=== PATIENT | female | born 1985 | race Two or more races ===

== ENCOUNTER 2019-06-18 01:22 | Emergency (ER) | payer MEDICAID ==
[~2019-06-18] VITALS: Ht 154.9 cm; Wt 62.1 kg
[~2019-06-18 01:22] MED LIST: BENADRYL25 M2 PO; DILANTIN100 MG PO; HYDROMORPHONE HC4 M1 PO; METHIMAZOLE10 MG PO
[2019-06-18] MEDS ORDERED: LORazepam Inj 2mg/ml 1ml IV ONE ×2 (01:30→01:45)
[2019-06-18] MEDS ORDERED: Phenytoin 500 MG in NS 110 ML IVPB STA (01:35)
--- NOTE | 2019-06-18 01:44 | Emergency Room Report ---
History of Present Illness General Chief Complaint: Seizure Source: Patient Present Illness HPI The patient had a generalized tonic-clonic seizure 1 hour before presentation here. In the past she has been treated with Dilantin and multiple other antiseizure medications. She alleges she was taken off of all seizure medication by her neurologist. Apparently she has seizures related to her headache. She does have a headache at this time that severe. She takes Dilaudid at home. Pain is constant and more in the right temporal area but throughout her head. She feels nauseated but is not vomiting. There is no trauma during the seizure. She denies fevers or chills. There was no incontinence. She alleges she had a glioblastoma that was surgically removed in 2005. She was also treated for lymphoma allegedly with radiation and chemotherapy.. 3 months ago she was told she has a recurrence of the lymphoma. The mass in her neck on the left-hand side. She is being treated at [facility]. No sore throat, chest pain, palpitations, diarrhea, dysuria, abdominal pain, shortness of breath, joint pain, rashes. In 2014 this was the history given with HOLDER: Patient presents with complaint of 2 days of headache, and some blurry vision on the right side. She states she has a history of temporal arteritis which was diagnosed may be a year ago and outside hospital and the family. She states that she never followed up with a drywall stripper and that her primary advised her to go emerged department for further evaluation because of the headache. She has taken steroids in the past per her description. She complains of some nausea as well as. Without vomiting in the ER. Denies chest pain or shortness of breath or possible . She was seen in 2012 with this history: HISTORY OF PRESENT ILLNESS: This is a 27-year-old female, who has a history of lymphoma. She is status post a craniotomy. She has chronic pain from that. She usually takes Dilaudid and Benadryl. However, she has been out of her Dilaudid for the last 2 days. She spoke ot her pain management doctor, [___ _] , who referred her to us. Currently she is having no other symptoms, no nausea, no vomiting, no dizziness, and no syncope. This is a typical flare of her chronic pain which she grades a 9/10 located at the site of her craniotomy. No trauma. There are no other modifying factors, no associated signs or symptoms and no other complaints. 5 days later she was seen with these discharge diagnoses: 1. Acute exacerbation of chronic head pain. 2. Opiate seeking behavior. Allergies: Coded Allergies: TOPIRAMATE (Verified Allergy, Mild, Anaphylaxis, 03/11/13) METOCLOPRAMIDE HCL (Verified Allergy, Anaphylaxis, 03/11/13) Patient History Past Medical History: see triage record, old chart reviewed Past Surgical History: other - Alleged craniotomy Social History: Denies: smoking Social History Narrative brought by friend - has son at home Reviewed Nursing Documentation: PMH: Agreed; PSxH: Agreed Nursing Documentation-PMH Hx Neurological Problems: Yes - 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 Hx Seizures: Yes Review of Systems All Other Systems: negative except mentioned in HPI Physical Exam Vital Signs Date Time Temp Pulse Resp B/P (MAP) Pulse Ox O2 Delivery O2 Flow Rate FiO2 06/18/19 01:30 98.2 96 16 136/78 (97) 98 Room Air Sp02 EP Interpretation: reviewed, normal General Appearance: well appearing, no apparent distress, GCS 15 Head: normocephalic, atraumatic, other - Tenderness temporal area right Eyes: bilateral eye normal inspection, bilateral eye PERRL, bilateral eye EOMI ENT: moist mucus membranes - No oral trauma Neck: full range of motion, supple, no meningismus, no bony tend, other - hardness L lateral neck ? lymph tissue Respiratory: lungs clear, normal breath sounds Cardiovascular #1: regular rate, rhythm Cardiovascular #2: 2+ radial (R) Gastrointestinal: normal inspection Musculoskeletal: back normal, gait/station normal, normal range of motion Neurologic: alert, oriented x3, programs assistant III-XII nml as tested, motor strength/tone normal, DTRs symmetric, sensory intact, cerebellar normal, normal gait, speech normal Psychiatric: other - tearful in discussing dx Skin: no rash Medical Decision Making Diagnostic Impression: Primary Impression: Alleged seizure Additional Impressions: Headache Qualified Codes: R51 - Headache Inconsistent medical history ER Course Patient presents with a history of lymphoma, alleged seizure and headache. Differential includes uncontrolled seizures, cephalgia, drug-seeking behavior, coma, electrolyte imbalance amongst others. Based on the fact that the patient has a nonfocal neurologic exam at this time and a history of uncontrolled seizures CT of the head is not indicated. The patient will be evaluated with EKG, chest x-ray and labs. Patient will be treated with IV hydration and Ativan. Dilantin level is ordered as well as Dilantin IV. No IV sites. Meds re-ordered IM and PO. Labs unremarkable except for low Dilantin and + opiates. Pupils small but states "not working". Pain 10/09. Toradol ordered. Contact [facility]. Discussed with Dr. Ruby. No records for this patient for this birthday. Consideration of further treatment with Compazine. Discussed with patient. She states she has records at home. She feels better and requests to go home. She states to me that the pain is improved. She is in no distress at this time. Patient stable for outpatient observation and treatment. Laboratory Tests Test 06/18/19 01:30 06/18/19 02:20 Urine Color Pale yellow Urine Appearance Slightly cloudy Urine pH 5 (4.5-8.0) Urine Specific [place] 1.025 (1.005-1.035) Urine Protein 1+ (NEGATIVE) H Urine Glucose (UA) Negative (NEGATIVE) Urine Ketones Negative (NEGATIVE) Urine Blood Negative (NEGATIVE) Urine Nitrite Negative (NEGATIVE) Urine Bilirubin Negative (NEGATIVE) Urine Urobilinogen Normal MG/DL (0.0-1.0) Urine Leukocyte Esterase Negative (NEGATIVE) Urine RBC 0-2 /HPF (0 - 2) Urine WBC 0-2 /HPF (0 - 2) Urine Squamous Epithelial Cells Many /LPF (NONE/OCC) H Urine Bacteria Few /HPF (NONE) Urine HCG, Qualitative Negative (NEGATIVE) Urine Opiates Screen Positive (NEGATIVE) H Urine Barbiturates Screen Negative (NEGATIVE) Phencyclidine (PCP) Screen Negative (NEGATIVE) Urine Amphetamines Screen Negative (NEGATIVE) Urine Benzodiazepines Screen Negative (NEGATIVE) Urine Cocaine Screen Negative (NEGATIVE) Urine Marijuana (THC) Screen Negative (NEGATIVE) White Blood Count 10.2 K/UL (4.8-10.8) Red Blood Count 4.42 M/UL (4.20-5.40) Hemoglobin 12.0 G/DL (12.0-16.0) Hematocrit 36.8 % (37.0-47.0) L Mean Corpuscular Volume 83 FL (80-99) Mean Corpuscular Hemoglobin 27.1 PG (27.0-31.0) Mean Corpuscular Hemoglobin Concent 32.5 G/DL (32.0-36.0) Red Cell Distribution Width 13.4 % (11.6-14.8) Platelet Count 372 K/UL (150-450) Mean Platelet Volume 6.2 FL (6.5-10.1) L Neutrophils (%) (Auto) 58.5 % (45.0-75.0) Lymphocytes (%) (Auto) 31.9 % (20.0-45.0) Monocytes (%) (Auto) 6.6 % (1.0-10.0) Eosinophils (%) (Auto) 2.2 % (0.0-3.0) Basophils (%) (Auto) 0.9 % (0.0-2.0) Sodium Level 135 MMOL/L (136-145) L Potassium Level 3.6 MMOL/L (3.5-5.1) Chloride Level 102 MMOL/L (98-107) Carbon Dioxide Level 27 MMOL/L (21-32) Anion Gap 6 mmol/L (5-15) Blood Urea Nitrogen 13 mg/dL (7-18) Creatinine 0.8 MG/DL (0.55-1.30) Estimate Glomerular Filtration Rate > 60 mL/min (>60) Glucose Level 91 MG/DL (74-106) Calcium Level 8.5 MG/DL (8.5-10.1) Total Bilirubin 0.1 MG/DL (0.2-1.0) L Aspartate Amino Transferase (AST) 16 U/L (15-37) Alanine Aminotransferase (ALT) 18 U/L (12-78) Alkaline Phosphatase 99 U/L (46-116) Total Creatine Kinase 296 U/L (26-308) Total Protein 7.9 G/DL (6.4-8.2) Albumin 3.6 G/DL (3.4-5.0) Globulin 4.3 g/dL Albumin/Globulin Ratio 0.8 (1.0-2.7) L Acetaminophen Level < 2 MCG/ML (10-30) L Phenytoin (Dilantin) Level 1.1 ug/mL (10-20) L Serum Alcohol < 3 mg/dL EKG Diagnostic Results Rate: normal Rhythm: NSR ST Segments: no acute changes Rhythm Strip Diag. Results EP Interpretation: yes Rhythm: NSR, no PVC's, no ectopy Last Vital Signs Date Time Temp Pulse Resp B/P (MAP) Pulse Ox O2 Delivery O2 Flow Rate FiO2 06/18/19 04:29 98.2 16 136/78 98 Room Air 06/18/19 01:45 96 Status: improved Disposition: HOME, SELF-CARE Condition: Improved Gonzales Batista MD Jun 18, 2019 01:44
[2019-06-18 01:45] VITALS: BP 136/78
[2019-06-18] MEDS ORDERED: Hydromorphone 0.5mg/0.5ml inj IVP ONE (01:45)
--- NOTE | 2019-06-18 01:45 | NUR ---
ED Nurse Note: Patient walked in to ER c/o seizure 1 hr ago. Stated that was witnessed by family members, seizure duration was 60 sec. Patient presented AAO x4, VSS at this time, skin warm to touch.
[2019-06-18 02:02] LABS: APPEARANCE,URINE SLIGHTLY CLOUDY; BILIRUBIN, URINE NEGATIVE (NEGATIVE); COLOR,URINE PALE YELLOW; GLUCOSE, URINE (UA) NEGATIVE (NEGATIVE); KETONES,URINE NEGATIVE (NEGATIVE); LEUKOCYTE ESTERASE ,URINE NEGATIVE (NEGATIVE); NITRITE,URINE NEGATIVE (NEGATIVE); PH,URINE 5 (4.5-8.0); PROTEIN,URINE 1+ (NEGATIVE); UROBILINOGEN,URINE NORMAL MG/DL (0.0-1.0)
[2019-06-18] MEDS ORDERED: Phenytoin 100mg cap ORAL ONE (02:15)
[2019-06-18] MEDS ORDERED: HYDROmorphone 1mg/ml Carpuject IM ONE (02:15)
[2019-06-18 02:30] LABS: BASOPHILS % (AUTO) 0.9 % (0.0-2.0); EOSINOPHILS % (AUTO) 2.2 % (0.0-3.0); HEMATOCRIT 36.8 % (37.0-47.0); LYMPHOCYTES % (AUTO) 31.9 % (20.0-45.0); MEAN CORPUSCULAR VOLUME 83 FL (80-99); MONOCYTES % (AUTO) 6.6 % (1.0-10.0); NEUTROPHILS % (AUTO) 58.5 % (45.0-75.0); PLATELET COUNT 372 K/UL (150-450); RED BLOOD COUNT 4.42 M/UL (4.20-5.40); RED CELL DISTRIBUTION WIDTH 13.4 % (11.6-14.8); WHITE BLOOD COUNT 10.2 K/UL (4.8-10.8)
[2019-06-18 02:38] LABS: ANION GAP 6 mmol/L (5-15); BLOOD UREA NITROGEN 13 mg/dL (7-18); CALCIUM 8.5 MG/DL (8.5-10.1); CARBON DIOXIDE 27 MMOL/L (21-32); CHLORIDE 102 MMOL/L (98-107); CREATININE 0.8 MG/DL (0.55-1.30); POTASSIUM 3.6 MMOL/L (3.5-5.1); SODIUM 135 MMOL/L (136-145)
[2019-06-18 02:43] LABS: ALANINE AMINOTRANSFERASE 18 U/L (12-78); ALBUMIN 3.6 G/DL (3.4-5.0); ALBUMIN/GLOBULIN RATIO 0.8 (1.0-2.7); ALKALINE PHOSPHATASE 99 U/L (46-116); ASPARTATE AMINO TRANSFERASE 16 U/L (15-37); BILIRUBIN,TOTAL 0.1 MG/DL (0.2-1.0); CREATINE KINASE 296 U/L (26-308)
[2019-06-18] MEDS ORDERED: Ketorolac 60mg Inj IM ONE (03:45)
[2019-06-18 04:29] VITALS: BP 136/78
--- NOTE | 2019-06-18 04:30 | NUR ---
ED Nurse Note: Pt cleared by health care Provider for discharge. DC instructions/prescription was given and explained to pt and verbalized understanding of teachings. All medical deviecs such as ID band removed. Pt is AAO x4, ambulatory and left with all personal belongings.
--- NOTE | 2019-06-18 13:13 | Diagnostic Imaging Report ---
Indication: Chest pain Technique: One view of the chest Comparison: none Findings: Lungs and pleural spaces are clear. Heart size is normal. Impression: No acute process
--- NOTE | 2019-06-18 19:52 | Cardiology Report ---
APPROVED REPORT EKG Measurement Heart [id number] Normal sinus rhythm Normal ECG
== END 2019-06-18 04:45 | disposition home or self-care (01) ==
LOC: EMR 01:36
DX: R51 Headache (principal); Z88.8 Allergy status to other drugs, medicaments and biological substances
CPT/HCPCS: 36415; 71045; 80053; 80185; 80307; 80329; 81003; 81025; 82550; 85025; 93005; 96372; 99284; J1170

== ENCOUNTER 2019-07-02 09:12 | Emergency (ER) | payer MEDICAID ==
[~2019-07-02] VITALS: Ht 152.4 cm; Wt 62.1 kg
[2019-07-02 09:39] VITALS: BP 120/89
[2019-07-02] MEDS ORDERED: Acetaminophen 500mg (ES) tab ORAL ONE (10:00)
--- NOTE | 2019-07-02 10:00 | NUR ---
ED Nurse Note: pt states she had a sz an hour ago now at home now c/o headache elissad rhianna done urine sent to lab. sz precautions implemented.
[2019-07-02 10:08] LABS: APPEARANCE,URINE CLEAR; BILIRUBIN, URINE NEGATIVE (NEGATIVE); COLOR,URINE PALE YELLOW; GLUCOSE, URINE (UA) NEGATIVE (NEGATIVE); KETONES,URINE NEGATIVE (NEGATIVE); LEUKOCYTE ESTERASE ,URINE NEGATIVE (NEGATIVE); NITRITE,URINE NEGATIVE (NEGATIVE); PH,URINE 6 (4.5-8.0); PROTEIN,URINE 1+ (NEGATIVE); UROBILINOGEN,URINE NORMAL MG/DL (0.0-1.0)
--- NOTE | 2019-07-02 11:01 | Emergency Room Report ---
History of Present Illness General Chief Complaint: Seizure Present Illness HPI Patient is a 34-year-old female who presented after increased headache. Patient reports having prior history of multiple medical problems in the past. She states she had prior history of brain tumor as well as prior Craniotomy. She reports having prior history of lymphoma. She states she is followed by Dr. Steven Camargo at the [facility]. She reports having worsening headache. She states she usually takes pain medications including Dilaudid as well as Sloan.Patient reports having prior history of craniotomy and prior traction headaches as result. She reportedly had prior history of glioblastoma and is currently scheduled for a PET scan with her primary care physician. She denies any fever. She reports having one episode of vomiting. She denies any visual changes. She reports having multiple medication allergies. Allergies: Coded Allergies: METHYLPREDNISOLONE (Verified Allergy, Severe, Anaphylaxis, 07/02/19) PROCHLORPERAZINE (Verified Allergy, Severe, Anaphylaxis, 07/02/19) PROMETHAZINE (Verified Allergy, Severe, Anaphylaxis, 07/02/19) TOPIRAMATE (Verified Allergy, Mild, Anaphylaxis, 03/11/13) METOCLOPRAMIDE HCL (Verified Allergy, Unknown, Anaphylaxis, 07/02/19) Patient History Past Medical History: see triage record Last Menstrual Period: now Reviewed Nursing Documentation: PMH: Agreed; PSxH: Agreed Nursing Documentation-PMH Hx Cancer: Yes Hx Neurological Problems: Yes - TUMOR OF BRAIN TO LYHOMA Hx Seizures: Yes Review of Systems All Other Systems: negative except mentioned in HPI Physical Exam Vital Signs Date Time Temp Pulse Resp B/P (MAP) Pulse Ox O2 Delivery O2 Flow Rate FiO2 07/02/19 09:20 98.1 84 18 120/89 (99) 98 Room Air Sp02 EP Interpretation: reviewed, normal General Appearance: normal inspection, well appearing, no apparent distress, alert, GCS 15 Head: atraumatic, other - prior craniotomy scar ENT: normal ENT inspection, hearing grossly normal, normal voice, other - no tongue abrasion Neck: normal inspection, full range of motion, supple, no bony tend Respiratory: normal inspection, lungs clear, normal breath sounds, no respiratory distress, no retraction, no wheezing Cardiovascular #1: regular rate, rhythm, no edema Gastrointestinal: normal inspection, normal bowel sounds, non tender, soft, no guarding, no hernia Genitourinary: no CVA tenderness Musculoskeletal: normal inspection, back normal, normal range of motion Neurologic: normal inspection, alert, oriented x3, responsive, fern picker III-XII nml as tested, motor strength/tone normal, speech normal Psychiatric: normal inspection, judgement/insight normal, mood/affect normal Medical Decision Making Diagnostic Impression: Primary Impression: Headache ER Course Differential diagnoses included but was not limited to skull fracture, subarachnoid hemorrhage, meningitis, aneurysm, mass lesion, intracranial hemorrhage. Patient's cures report was reviewed and was noted to have multiple prescriptions for medications including morphine sulfate 30 mg #60 approximately 2 weeks prior to arrival. Patient had multiple different prescriptions from primary care provider primarily Dr. Abelardo Cary who is the patient's primary care physician..Patient has had intermittent similar headaches in the past. Pertinent past visits patient's medical records could not be obtained from [facility] however patient does not see oncologist at [facility] she goes to another facility. I was unable to contact this facility however patient's oncologist's name Steven Camargo and she has received narcotic pain medications in the past. Patient does not appear to be in any acute distress. She is offered nonnarcotic pain medications. Patient was not offered narcotics due to likelihood of rebound headache. Patient's laboratory testing was unremarkable. She appears to be stable for discharge. Patient advised to follow-up with her primary care physician for further evaluation and imaging. Patient appears to be stable for discharge and does not show any evidence of focal neurologic deficit or weakness. Last Vital Signs Date Time Temp Pulse Resp B/P (MAP) Pulse Ox O2 Delivery O2 Flow Rate FiO2 07/02/19 09:41 84 18 Room Air 07/02/19 09:39 98.1 120/89 98 Status: improved Disposition: HOME, SELF-CARE Condition: Stable Patient Instructions: General Headache Without Cause Braulio Dash MD Jul 02, 2019 11:01
[2019-07-02] MEDS ORDERED: DiphenhydrAMINE 50mg/ml Inj IVP ONE (11:15)
[2019-07-02] MEDS ORDERED: Ketorolac 30mg Inj IV ONE (11:15)
[2019-07-02 11:43] LABS: BASOPHILS % (AUTO) 0.9 % (0.0-2.0); HEMATOCRIT 41.1 % (37.0-47.0); LYMPHOCYTES % (AUTO) 33.8 % (20.0-45.0); MEAN CORPUSCULAR VOLUME 83 FL (80-99); MONOCYTES % (AUTO) 5.3 % (1.0-10.0); PLATELET COUNT 393 K/UL (150-450); RED BLOOD COUNT 4.96 M/UL (4.20-5.40); RED CELL DISTRIBUTION WIDTH 14.5 % (11.6-14.8); WHITE BLOOD COUNT 5.4 K/UL (4.8-10.8)
[2019-07-02 11:59] LABS: ANION GAP 13 mmol/L (5-15); BLOOD UREA NITROGEN 6 mg/dL (7-18); CALCIUM 9.1 MG/DL (8.5-10.1); CARBON DIOXIDE 23 MMOL/L (21-32); CHLORIDE 106 MMOL/L (98-107); CREATININE 0.6 MG/DL (0.55-1.30); POTASSIUM 4.3 MMOL/L (3.5-5.1); SODIUM 142 MMOL/L (136-145)
[2019-07-02] MEDS ORDERED: Morphine Sulfate 4mg/ml Inj (IV USE ONLY) IVP ONE (12:00)
[2019-07-02 12:04] LABS: ALANINE AMINOTRANSFERASE 21 U/L (12-78); ALBUMIN 4.1 G/DL (3.4-5.0); ALBUMIN/GLOBULIN RATIO 0.9 (1.0-2.7); ALKALINE PHOSPHATASE 95 U/L (46-116); ASPARTATE AMINO TRANSFERASE 27 U/L (15-37)
[2019-07-02 13:19] VITALS: BP 127/80
--- NOTE | 2019-07-02 13:19 | NUR ---
ER DISCHARGE NOTE: Patient is cleared to be discharged per ERMD, pt is aox4, on room air, with stable vital signs. pt was given dc and prescription instructions, pt was able to verbalize understanding, pt id band and iv site removed without complications. pt is able to ambulate with steady gait. pt took all belongings.
[2019-07-02 14:35] LABS: BILIRUBIN,TOTAL 0.3 MG/DL (0.2-1.0)
== END 2019-07-02 13:19 | disposition home or self-care (01) ==
LOC: EMR 09:48
DX: R51 Headache (principal); Z85.72 Personal history of non-Hodgkin lymphomas; Z88.8 Allergy status to other drugs, medicaments and biological substances; Z85.841 Personal history of malignant neoplasm of brain
CPT/HCPCS: 36415; 80053; 81003; 81025; 85025; 96374; 96375; 99284; J1200; J1885; J2270; J7040

== ENCOUNTER 2019-07-18 19:41 | Emergency (ER) | payer MEDICAID ==
[~2019-07-18] VITALS: Ht 152.4 cm; Wt 61.2 kg
[2019-07-18 19:50] VITALS: BP 130/90
--- NOTE | 2019-07-18 19:50 | NUR ---
ED Nurse Note: Pt AAOx4, vvs, with no acute distress. pt walked in c/o headache, seizure, and n/v since 1800. Witnessed seizure for 90 secs by dad. Pt stated she has heachace and n/v before seizure. Pt not on meds d/t neurologist recommendation, unk last sz
--- NOTE | 2019-07-18 20:23 | Emergency Room Report ---
History of Present Illness General Chief Complaint: Seizure Source: Patient Present Illness HPI Patient is a 34-year-old female who presents after reported seizure. She reports having prior history of headache induced seizures. She states that she had prior history of glioblastoma and has had previous brain surgery. She reports having prior history of lymphoma. Allergies: Coded Allergies: METHYLPREDNISOLONE (Verified Allergy, Severe, Anaphylaxis, 07/02/19) PROCHLORPERAZINE (Verified Allergy, Severe, Anaphylaxis, 07/02/19) PROMETHAZINE (Verified Allergy, Severe, Anaphylaxis, 07/02/19) TOPIRAMATE (Verified Allergy, Mild, Anaphylaxis, 03/11/13) METOCLOPRAMIDE HCL (Verified Allergy, Unknown, Anaphylaxis, 07/02/19) Patient History Past Medical History: see triage record Last Menstrual Period: 07/2019 Now: No : 4 Para: 4 Reviewed Nursing Documentation: PMH: Agreed; PSxH: Agreed Nursing Documentation-PMH Hx Cancer: Yes Hx Neurological Problems: Yes - 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 , hedgkins lymphoma, gleoblastoma, Hx Seizures: Yes Review of Systems All Other Systems: negative except mentioned in HPI Physical Exam Vital Signs Date Time Temp Pulse Resp B/P (MAP) Pulse Ox O2 Delivery O2 Flow Rate FiO2 07/18/19 19:43 98.4 89 16 125/92 (103) 97 Sp02 EP Interpretation: reviewed, normal General Appearance: normal inspection, well appearing, no apparent distress, alert, GCS 15 Head: atraumatic ENT: normal ENT inspection, hearing grossly normal, normal voice Neck: normal inspection, full range of motion, supple, no bony tend Respiratory: normal inspection, lungs clear, normal breath sounds, no respiratory distress, no retraction, no wheezing Cardiovascular #1: regular rate, rhythm, no edema Gastrointestinal: normal inspection, normal bowel sounds, non tender, soft, no guarding, no hernia Genitourinary: no CVA tenderness Musculoskeletal: normal inspection, back normal, normal range of motion Neurologic: normal inspection, alert, oriented x3, responsive, poultry raiser III-XII nml as tested, speech normal Psychiatric: normal inspection, judgement/insight normal, mood/affect normal Medical Decision Making Diagnostic Impression: Primary Impression: Chronic pain Additional Impression: Headache ER Course Patient presented for headache. Differential diagnosis include was not limited to migraine headache, brain tumor, seizure, opiate withdrawal among others. Patient is noted to have some prior history of reported intracranial malignancy and has had previous CT imaging which showed some postsurgical changes. Patient is regularly being prescribed narcotic pain medication by her primary care physician. As she appears to be stable for outpatient evaluation and treatment with her neurologist. She is currently awake and alert with normal mental status. Patient was given pain medications emergency department. patient shows no evidence of acidosis. The patient is advised to follow up with primary care doctor in 1-2 days. Patient is advised to return if any worsening condition or if any changes in status that are concerning. This report is dictated with [employer] supervisor open hear[employer] stock[employer] software which may occasionally lead to discrepancies related to use of this software. Labs Test 07/18/19 20:40 07/18/19 20:45 White Blood Count 7.8 K/UL (4.8-10.8) Red Blood Count 4.21 M/UL (4.20-5.40) Hemoglobin 11.3 G/DL (12.0-16.0) Hematocrit 34.8 % (37.0-47.0) Mean Corpuscular Volume 83 FL (80-99) Mean Corpuscular Hemoglobin 26.8 PG (27.0-31.0) Mean Corpuscular Hemoglobin Concent 32.4 G/DL (32.0-36.0) Red Cell Distribution Width 13.9 % (11.6-14.8) Platelet Count 277 K/UL (150-450) Mean Platelet Volume 7.2 FL (6.5-10.1) Neutrophils (%) (Auto) 60.1 % (45.0-75.0) Lymphocytes (%) (Auto) 28.7 % (20.0-45.0) Monocytes (%) (Auto) 7.0 % (1.0-10.0) Eosinophils (%) (Auto) 2.9 % (0.0-3.0) Basophils (%) (Auto) 1.3 % (0.0-2.0) Sodium Level 140 MMOL/L (136-145) Potassium Level 3.9 MMOL/L (3.5-5.1) Chloride Level 107 MMOL/L (98-107) Carbon Dioxide Level 24 MMOL/L (21-32) Anion Gap 9 mmol/L (5-15) Blood Urea Nitrogen 10 mg/dL (7-18) Creatinine 0.7 MG/DL (0.55-1.30) Estimat Glomerular Filtration Rate > 60 mL/min (>60) Glucose Level 97 MG/DL (74-106) Calcium Level 8.8 MG/DL (8.5-10.1) Total Bilirubin 0.1 MG/DL (0.2-1.0) Aspartate Amino Transf (AST/SGOT) 20 U/L (15-37) Alanine Aminotransferase (ALT/SGPT) 17 U/L (12-78) Alkaline Phosphatase 78 U/L (46-116) Total Protein 7.5 G/DL (6.4-8.2) Albumin 3.4 G/DL (3.4-5.0) Globulin 4.1 g/dL Albumin/Globulin Ratio 0.8 (1.0-2.7) Urine Color Pale yellow Urine Appearance Clear Urine pH 7 (4.5-8.0) Urine Specific [place] 1.005 (1.005-1.035) Urine Protein Negative (NEGATIVE) Urine Glucose (UA) Negative (NEGATIVE) Urine Ketones Negative (NEGATIVE) Urine Blood Negative (NEGATIVE) Urine Nitrite Negative (NEGATIVE) Urine Bilirubin Negative (NEGATIVE) Urine Urobilinogen Normal MG/DL (0.0-1.0) Urine Leukocyte Esterase Negative (NEGATIVE) Urine HCG, Qualitative Negative (NEGATIVE) Last Vital Signs Date Time Temp Pulse Resp B/P (MAP) Pulse Ox O2 Delivery O2 Flow Rate FiO2 07/18/19 19:43 98.4 89 16 125/92 (103) 97 Status: improved Disposition: HOME, SELF-CARE Condition: Stable Braulio Dash MD Jul 18, 2019 20:23
[2019-07-18] MEDS ORDERED: HYDROmorphone 1mg/ml Carpuject IVP ONE (20:30)
[2019-07-18 21:06] LABS: APPEARANCE,URINE CLEAR; BILIRUBIN, URINE NEGATIVE (NEGATIVE); COLOR,URINE PALE YELLOW; GLUCOSE, URINE (UA) NEGATIVE (NEGATIVE); KETONES,URINE NEGATIVE (NEGATIVE); LEUKOCYTE ESTERASE ,URINE NEGATIVE (NEGATIVE); NITRITE,URINE NEGATIVE (NEGATIVE); PH,URINE 7 (4.5-8.0); PROTEIN,URINE NEGATIVE (NEGATIVE); UROBILINOGEN,URINE NORMAL MG/DL (0.0-1.0)
[2019-07-18 21:14] LABS: ANION GAP 9 mmol/L (5-15); BLOOD UREA NITROGEN 10 mg/dL (7-18); CALCIUM 8.8 MG/DL (8.5-10.1); CARBON DIOXIDE 24 MMOL/L (21-32); CHLORIDE 107 MMOL/L (98-107); CREATININE 0.7 MG/DL (0.55-1.30); POTASSIUM 3.9 MMOL/L (3.5-5.1); SODIUM 140 MMOL/L (136-145)
[2019-07-18 21:19] LABS: ALANINE AMINOTRANSFERASE 17 U/L (12-78); ALBUMIN 3.4 G/DL (3.4-5.0); ALBUMIN/GLOBULIN RATIO 0.8 (1.0-2.7); ALKALINE PHOSPHATASE 78 U/L (46-116); ASPARTATE AMINO TRANSFERASE 20 U/L (15-37); BILIRUBIN,TOTAL 0.1 MG/DL (0.2-1.0)
[2019-07-18 21:21] LABS: BASOPHILS % (AUTO) 1.3 % (0.0-2.0); EOSINOPHILS % (AUTO) 2.9 % (0.0-3.0); HEMATOCRIT 34.8 % (37.0-47.0); HEMOGLOBIN 11.3 G/DL (12.0-16.0); LYMPHOCYTES % (AUTO) 28.7 % (20.0-45.0); MEAN CORPUSCULAR VOLUME 83 FL (80-99); NEUTROPHILS % (AUTO) 60.1 % (45.0-75.0); PLATELET COUNT 277 K/UL (150-450); RED BLOOD COUNT 4.21 M/UL (4.20-5.40); RED CELL DISTRIBUTION WIDTH 13.9 % (11.6-14.8); WHITE BLOOD COUNT 7.8 K/UL (4.8-10.8)
[2019-07-18] MEDS ORDERED: HYDROmorphone 1mg/ml Carpuject IM ONE (21:45)
[2019-07-18] MEDS ORDERED: DiphenhydrAMINE 50mg/ml Inj IM ONE (21:45)
[2019-07-18 21:57] VITALS: BP 112/60
== END 2019-07-18 21:57 | disposition home or self-care (01) ==
LOC: EMR 20:33
DX: G89.29 Other chronic pain (principal); R51 Headache; Z85.71 Personal history of Hodgkin lymphoma; Z88.8 Allergy status to other drugs, medicaments and biological substances; Z85.841 Personal history of malignant neoplasm of brain
CPT/HCPCS: 36415; 80053; 81003; 81025; 85025; 96372; 96374; 96375; J1170; J1200; J2405; Z7502; 99284

== ENCOUNTER 2019-07-29 15:09 | Emergency (ER) | payer MEDICAID ==
[~2019-07-29] VITALS: Ht 152.4 cm; Wt 61.2 kg
[2019-07-29] MEDS ORDERED: HYDROcodone/Acetamin 5/325 tab ORAL ONE (15:45)
[2019-07-29 15:58] VITALS: BP 118/70
--- NOTE | 2019-07-29 16:00 | NUR ---
ED Nurse Note: Pt was seen and treated by dr andrade. pt c/o headache 08/09 initially but was medicated for pain med.d/c instructions given to pt instructed to follow up w/pmd come back to er for any worsening condition. amb in stable condition. pt was picked up by .
--- NOTE | 2019-07-31 14:08 | Emergency Room Report ---
History of Present Illness General Chief Complaint: Seizure Source: Patient Present Illness HPI 34-year-old female presents ED for evaluation. Patient complaining of a headache and seizure. Seizure occurred today. Witnessed by family. No reported head injury. Patient states when she gets bad headaches she develops a seizure. History of chronic headaches. Patient went to urgent care and was given a shot of Toradol. Patient was told that first pain does not get better she should come to the ER. Pain is a 8 out of 10, dull, nonradiating. Denies photophobia or blurry vision. Denies nausea or vomiting. States his headache is typical. States she is unable to reach her pain management doctor. no other aggravating relieving factors. Denies any other associated symptoms Allergies: Coded Allergies: METHYLPREDNISOLONE (Verified Allergy, Severe, Anaphylaxis, 07/02/19) PROCHLORPERAZINE (Verified Allergy, Severe, Anaphylaxis, 07/02/19) PROMETHAZINE (Verified Allergy, Severe, Anaphylaxis, 07/02/19) TOPIRAMATE (Verified Allergy, Mild, Anaphylaxis, 03/11/13) METOCLOPRAMIDE HCL (Verified Allergy, Unknown, Anaphylaxis, 07/02/19) Patient History Past Medical History: seizures, migraines, other - brain tumor Pertinent Family History: none Social History: Denies: smoking, alcohol use, drug use Last Menstrual Period: Now: No Immunizations: UTD Reviewed Nursing Documentation: PMH: Agreed; PSxH: Agreed Nursing Documentation-PMH Past Medical History: No History, Except For Hx Cancer: Yes Hx Neurological Problems: Yes - 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 , hedgkins lymphoma, gleoblastoma, Hx Cerebrovascular Accident: No - hodgkins lymphoma glioblastoma Hx Seizures: Yes Review of Systems All Other Systems: negative except mentioned in HPI Physical Exam Vital Signs Date Time Temp Pulse Resp B/P (MAP) Pulse Ox O2 Delivery O2 Flow Rate FiO2 07/29/19 15:13 99.9 104 18 114/73 (87) 100 Room Air Sp02 EP Interpretation: reviewed, normal General Appearance: no apparent distress, alert, GCS 15, non-toxic Head: normocephalic, atraumatic Eyes: bilateral eye normal inspection, bilateral eye PERRL ENT: hearing grossly normal, normal pharynx, no angioedema, normal voice Neck: full range of motion, supple, no meningismus, supple/symm/no masses Respiratory: chest non-tender, lungs clear, normal breath sounds, speaking full sentences Cardiovascular #1: regular rate, rhythm, no edema Cardiovascular #2: 2+ carotid (R), 2+ carotid (L), 2+ radial (R), 2+ radial (L) , 2+ dorsalis pedis (R), 2+ dorsalis pedis (L) Gastrointestinal: normal bowel sounds, non tender, soft, non-distended, no guarding, no rebound Rectal: deferred Genitourinary: normal inspection, no CVA tenderness Musculoskeletal: back normal, gait/station normal, normal range of motion, non- tender Neurologic: alert, oriented x3, responsive, motor strength/tone normal, sensory intact, speech normal Psychiatric: judgement/insight normal, memory normal, mood/affect normal, no suicidal/homicidal ideation Reflexes: 3+ bicep (R), 3+ bicep (L), 3+ tricep (R), 3+ tricep (L), 3+ knee (R) , 3+ knee (L) Lymphatic: no adenopathy Medical Decision Making Diagnostic Impression: Primary Impression: Chronic pain Qualified Codes: G89.29 - Other chronic pain Additional Impressions: Headache Qualified Codes: R51 - Headache Seizure disorder Drug-seeking behavior ER Course Hospital Course 34 yo F presents with headache and seizure. h/o seizures. Differential diagnoses include: tension headache, migraine, dehydration, intracranial bleed Clinical course Patient placed on stretcher. After initial history, exam reveals female in no acute distress. No nuchal rigidity. Cranial nerves II through XII intact. No focal deficits. She is awake alert oriented x3. playing with her phone prior to my assessment I reviewed EMR. Patient has been here multiple times for the same presentation. Migraines precipitating seizures. History of brain tumor. Patient requests Dilaudid. I reviewed cures and patient is receiving extensive narcotic prescriptions monthly basis. I discussed these findings with the patient. Patient does not appear to be in distress. I agreed to provide her with 1 tablet of [place] Patient understands that she needs to follow-up with pain management for management of her headaches. Patient states seizures are not happening more than usual. Safe for discharge for close outpatient follow-up i. I feel this is a highly complex case requiring extensive working including EKG/Rhythm strip, Xray/CT/US, Blood/urine lab work, repeat exams while in ED, and administration of strong opiates/narcotics for pain control, admission to hospital or close patient follow up. Diagnosis - chronic pain, headache, seizure disorder, drug-seking behavior stable and discharged to home. f/up with PMD/pain/neuro. return to ED if symptoms recur/worsen. Last Vital Signs Date Time Temp Pulse Resp B/P (MAP) Pulse Ox O2 Delivery O2 Flow Rate FiO2 07/29/19 15:58 98.1 74 16 118/70 99 Room Air Status: improved Disposition: HOME, SELF-CARE Condition: Stable Referrals: NON PHYSICIAN (PCP) Patient Instructions: Chronic Pain, Seizure, Adult Chin Rodriguez MD Jul 31, 2019 14:08
== END 2019-07-29 16:00 | disposition home or self-care (01) ==
LOC: EMR 15:39
DX: R51 Headache (principal)
CPT/HCPCS: 99282

== ENCOUNTER 2019-10-15 13:36 | Emergency (ER) | payer MEDICAID ==
[~2019-10-15] VITALS: Ht 152.4 cm; Wt 77.1 kg
[2019-10-15] MEDS ORDERED: dilaudid PO (13:44)
[2019-10-15] MEDS ORDERED: Ketorolac 30mg Inj IM ONE (14:00)
[2019-10-15 14:10] VITALS: BP 108/68
--- NOTE | 2019-10-15 14:10 | Emergency Room Report ---
History of Present Illness General Chief Complaint: Headache Source: Patient Present Illness HPI 34-year-old female with history of migraine seizures and brain tumor complaining of a 10 out of 10 headache that started last night bouts of emesis. Patient has been here several times for the same complaint, only requesting an injection of Dilaudid, combination of Benadryl and Zofran to be given. Patient has extensive cures history, as well as allergies to medication. Reports her Zofran ODT medication that she can take for nausea however has to be mixed with Benadryl. Patient reports that she has been vomiting Benadryl and her [place] and wants Dilaudid as well as Zofran and Benadryl either IM or IV. After informed patient that I can only give Toradol and Zofran IM at this time and discharged with sublingual Zofran due to patient extensive cures history as well as chronic condition patient agrees to take Zofran IM as well as Toradol IM however before he was administered by my nurse patient eloped. Obvious drug-seeking behavior noted. Patient also reports that her neurologist is out of town. Denies alcohol intake, photophobia, drug use at this time Allergies: Coded Allergies: METHYLPREDNISOLONE (Verified Allergy, Severe, Anaphylaxis, 07/02/19) PROCHLORPERAZINE (Verified Allergy, Severe, Anaphylaxis, 07/02/19) PROMETHAZINE (Verified Allergy, Severe, Anaphylaxis, 07/02/19) TOPIRAMATE (Verified Allergy, Mild, Anaphylaxis, 03/11/13) METOCLOPRAMIDE HCL (Verified Allergy, Unknown, Anaphylaxis, 07/02/19) Patient History Past Medical History: see triage record Past Surgical History: unable to obtain Pertinent Family History: none Last Menstrual Period: 12-1 Now: No Immunizations: UTD Reviewed Nursing Documentation: PMH: Agreed; PSxH: Agreed Nursing Documentation-PMH Past Medical History: No History, Except For Hx Cancer: Yes Hx Neurological Problems: Yes - hodgkins lymphoma, gleoblastoma Hx Cerebrovascular Accident: No Hx Seizures: Yes Review of Systems All Other Systems: negative except mentioned in HPI Physical Exam Vital Signs Date Time Temp Pulse Resp B/P (MAP) Pulse Ox O2 Delivery O2 Flow Rate FiO2 10/15/19 13:40 98.1 114 20 106/70 (82) 98 Room Air Sp02 EP Interpretation: reviewed, normal General Appearance: no apparent distress, alert, GCS 15, non-toxic Head: normocephalic, atraumatic Eyes: bilateral eye normal inspection, bilateral eye PERRL ENT: hearing grossly normal, normal pharynx, no angioedema, normal voice Neck: full range of motion, supple/symm/no masses Respiratory: chest non-tender, lungs clear, normal breath sounds, no rhonchi, speaking full sentences Cardiovascular #1: regular rate, rhythm, no edema, no murmur Gastrointestinal: normal bowel sounds, non tender, soft, non-distended, no guarding, no rebound Rectal: deferred Genitourinary: no CVA tenderness Musculoskeletal: back normal, normal range of motion Neurologic: alert, motor strength/tone normal, oriented x3, sensory intact, responsive, speech normal Psychiatric: normal inspection, judgement/insight normal, memory normal Skin: no rash Lymphatic: normal inspection, no adenopathy Medical Decision Making PA Attestation All my diagnosis and treatment plans were reviewed ad discussed with my supervising physician Dr. Dash Diagnostic Impression: Primary Impression: Eloped from emergency department Additional Impression: Headache ER Course 34-year-old female with history of migraine seizures and brain tumor complaining of a 10 out of 10 headache that started last night bouts of emesis. Patient has been here several times for the same complaint, only requesting an injection of Dilaudid, combination of Benadryl and Zofran to be given. Patient has extensive cures history, as well as allergies to medication. Reports her Zofran ODT medication that she can take for nausea however has to be mixed with Benadryl. Patient reports that she has been vomiting Benadryl and her [place] and wants Dilaudid as well as Zofran and Benadryl either IM or IV. After informed patient that I can only give Toradol and Zofran IM at this time and discharged with sublingual Zofran due to patient extensive cures history as well as chronic condition patient agrees to take Zofran IM as well as Toradol IM however before he was administered by my nurse patient eloped. Obvious drug-seeking behavior noted. Patient also reports that her neurologist is out of town. Denies alcohol intake, photophobia, drug use at this time Ddx considered but are not limited to: Migraine headache with aura, migraine headache without aura, tension headache, cluster headache, TBI, subarachnoid hemorrhage Vital signs: are WNL, pt. is afebrile H&PE are most consistent with: Eloped , chronic migraine headache induced seizures, patient Take antiseizure medication per neurologist recommendation ORDERS: zofran ODT SL ER intervention: Zofran IM, Toradol IM Patient eloped Last Vital Signs Date Time Temp Pulse Resp B/P (MAP) Pulse Ox O2 Delivery O2 Flow Rate FiO2 10/15/19 13:40 98.1 114 20 106/70 (82) 98 Room Air Disposition: ELOPED Condition: Stable Scripts Ondansetron (Zofran) 4 Mg Tablet 4 MG SL Q6H PRN for Nausea & Vomiting, #14 TAB Prov: Live Castillo 10/15/19 Patient Instructions: Migraine Headache Additional Instructions: Follow-up with your neurologist regarding your headache, you are already on controlled substance, taking Benadryl with your Zofran is not going to increase the anti-emetic effects of Zofran and due to sedative effects of Benadryl it is not advised to take Benadryl when taking [place] and morphine. At this time due to your extensive allergies to antiemetics no other antiemetic can be prescribed. Live Castillo Oct 15, 2019 14:10
[2019-10-15] MEDS ORDERED: ZOFRAN4 M1 SL (14:11)
== END 2019-10-15 14:35 | disposition home or self-care (01) ==
LOC: EMR 14:12
DX: R51 Headache (principal); Z88.8 Allergy status to other drugs, medicaments and biological substances; Z85.71 Personal history of Hodgkin lymphoma; G40.909 Epilepsy, unspecified, not intractable, without status epilepticus
CPT/HCPCS: J1885; Z7502; 99282; J2405